=== PATIENT | male | born 1955 ===

== ENCOUNTER 2018-07-15 10:28 | Outpatient (CLI) | payer OTHER | END 2018-07-15 10:29 | disposition home or self-care (01) | LOC: C.LAB 10:28 | DX: E11.8 Type 2 diabetes mellitus with unspecified complications (principal); N34.0 Urethral abscess; E78.5 Hyperlipidemia, unspecified ==

== ENCOUNTER 2018-07-15 10:36 | Outpatient (CLI) | payer OTHER | END 2018-07-15 10:37 | disposition home or self-care (01) | LOC: C.RADH 10:36 ==